=== PATIENT | male | born 1960 | race Caucasian/White ===

== ENCOUNTER 2019-10-04 07:22 | Day surgery (SDC) | payer OTHER, BC ==
[2019-10-04] MEDS ORDERED: LIDOCAINE HCL/PF 2% SDV 5ML VIAL ONE (07:49)
[2019-10-04] MEDS ORDERED: PROPOFOL 20 ML ONE ×2 (07:49)
[2019-10-04 08:02] VITALS: TEMP 97.8; BMI 24.4
[2019-10-04 10:44] VITALS: BP 120/78; PULSE 72
--- NOTE | 2019-10-05 18:38 | PATH ---
Surgical Pathology Report Patient Name: ANURAG BAKER [facility]. Rec. #: [id number] /Age/Gender: 1960 (Age: 59) / M Account: [id number] Location: [place] Taken: 10/04/2019 Received: 10/04/2019 Reported: 10/05/2019 Physicians: Xavi Niño M.D. Specimen(s) Received POLYP CECUM Clinical History History of polyps Postoperative diagnosis: Diverticulosis, colon polyp Final Diagnosis CECUM POLYP, POLYPECTOMY: HYPERPLASTIC POLYP. Electronically Signed Margaret Marie M.D. Gross Description Received in formalin, labeled "biopsy polyp cecum" is a suarez, irregular portion of soft tissue measuring 0.8 cm. in greatest dimension. The specimen is submitted in toto in one cassette. 10/04/2019 [facility]/2019
== END 2019-10-04 09:45 | disposition home or self-care (01) ==
LOC: FASU-ENDO 07:22
PROVIDERS: ATTEND Internal Medicine Gastroenterology
PROC: 0DBH8ZX Excision of Cecum, Via Natural or Artificial Opening Endoscopic, Diagnostic (ICD-10-PCS; principal; 2019-10-04 08:24)
DX: Z86.010 Personal history of colon polyps (principal); Z80.0 Family history of malignant neoplasm of digestive organs; D12.0 Benign neoplasm of cecum; K57.30 Diverticulosis of large intestine without perforation or abscess without bleeding
CPT/HCPCS: 88305-TC